=== PATIENT | male | born 1975 | race Caucasian/White ===

== ENCOUNTER 2017-04-23 00:46 | Day surgery (SDC) | payer OTHER ==
[~2017-04-23 00:46] MED LIST: CYCL10TA9 PO; ESOM40CA53 PO; FLUT9.9S NS; HYDR-3605 PO; IBUP800T28 PO; LORA10CA9 PO
== END 2017-04-23 23:59 | disposition home or self-care (01) ==
LOC: END 00:46
PROVIDERS: ATTEND Surgery
DX: K21.9 Gastro-esophageal reflux disease without esophagitis (principal)